=== PATIENT | female | born 1985 | race Caucasian/White ===

== ENCOUNTER 2021-05-20 12:54 | Inpatient (IN) ==
[2021-05-20] MEDS ORDERED: ONDANSETRON 4 MG/2 ML VIAL IV PRN (13:35)
[2021-05-20] MEDS ORDERED: BUTORPHANOL 2 MG/ML VIAL IV PRN (13:35)
[2021-05-20] MEDS ORDERED: LACTATED RINGERS 1,000 ML IV PRN (13:35)
[2021-05-20] MEDS ORDERED: BUTORPHANOL 1 MG/ML VIAL IV PRN (13:35)
[2021-05-20] MEDS ORDERED: AMPICILLIN INJ 2,000 MG in SODIUM CHLORIDE 0.9% 100 ML IV ONE (13:37)
[2021-05-20 14:21] LABS: Basophils % 0.4 % (0.0-0.8); Eosinophils # 0.1 10*3/uL (0.0-0.87); Eosinophils % 0.7 % (0.00-10.9); Hematocrit 38.3 VOL% (35.7-47.0); Hemoglobin 13.4 GM/DL (12.0-16.0); Immature Granulocytes % 0.7 %; Immature Granulocytes Absolute 0.06 #; Lymphocytes # 2.3 10*3/uL (1.4-4.0); Lymphocytes % 24.8 % (21.3-54.2); Mean Corpuscular Volume 89.9 FL (87-102); Mean Platelet Volume 11.1 FL (9.6-12.0); Monocytes % 5.1 % (1.7-12.7); Neutrophils % 68.3 % (38.7-73.9); Platelet Count 172 T/CUMM (130-400); Red Blood Count 4.26 MC/CUMM (3.8-5.5); Red Cell Distribution Width 13.1 % (9.3-17.3); White Blood Count 9.2 T/CUMM (4-12)
[2021-05-20] MEDS ORDERED: OXYTOCIN/LR 20 UNIT/1,000 ML BAG IV ONE ×2 (17:04→21:16)
[2021-05-20] MEDS ORDERED: miSOPROStoL 200 MCG TABLET ONE (17:04)
[2021-05-20] MEDS ORDERED: SODIUM CHLORIDE 0.9% 0 ML IV ONE (17:04)
[2021-05-20] MEDS ORDERED: TRANEXAMIC ACID 1,000 MG/10 ML VIAL ONE (17:04)
[2021-05-20] MEDS ORDERED: METHYLERGONOVINE 0.2 MG/1 ML AMP ONE (17:05)
[2021-05-20] MEDS ORDERED: CARBOPROST TROMETHAMINE 250 MCG/ML AMP IM ONE (17:05)
[2021-05-20] MEDS ORDERED: AMPICILLIN INJ 1,000 MG in SODIUM CHLORIDE 0.9% 100 ML IV SCH (17:30)
[2021-05-20 19:00] LABS: Cord Arterial Blood HCO3 21.7 MMOL/L
[2021-05-20 19:02] LABS: Cord Venous Blood PCO2 32.4 MMHG; Cord Venous Blood PO2 29.8
[2021-05-20] MEDS ORDERED: IBUPROFEN 800 MG TABLET PO ONE (20:38)
[2021-05-20] MEDS ORDERED: oxyCODONE/ACETAMINOPHEN 5-325 MG TABLET PO PRN ×2 (21:27)
[2021-05-20] MEDS ORDERED: IBUPROFEN 800 MG TABLET PO PRN (21:27)
[2021-05-21 06:59] LABS: Basophils % 0.3 % (0.0-0.8); Eosinophils # 0.1 10*3/uL (0.0-0.87); Eosinophils % 0.4 % (0.00-10.9); Hematocrit 33.8 VOL% (35.7-47.0); Hemoglobin 11.4 GM/DL (12.0-16.0); Immature Granulocytes % 0.7 %; Immature Granulocytes Absolute 0.08 #; Lymphocytes # 2.2 10*3/uL (1.4-4.0); Lymphocytes % 19.1 % (21.3-54.2); Mean Corpuscular HGB Conc 33.7 GM/DL (32-36); Mean Corpuscular Volume 93.6 FL (87-102); Mean Platelet Volume 11.8 FL (9.6-12.0); Monocytes % 6.6 % (1.7-12.7); Neutrophils % 72.9 % (38.7-73.9); Platelet Count 158 T/CUMM (130-400); Red Blood Count 3.61 MC/CUMM (3.8-5.5); Red Cell Distribution Width 13.1 % (9.3-17.3); White Blood Count 11.6 T/CUMM (4-12)
[2021-05-21] MEDS: DOCUSATE SODIUM 100 MG CAPSULE PO SCH ×2 (09:04→21:00)
[2021-05-21] MEDS ORDERED: ACETAMINOPHEN 325 MG TABLET PO PRN (09:28)
[2021-05-21] MEDS ORDERED: MEASLES/MUMPS/RUBELLA VACCINE 0.5 ML VIAL SUBCUT ONE (09:28)
[2021-05-21] MEDS ORDERED: BISACODYL 10 MG SUPP RECTAL PRN (09:28)
[2021-05-21] MEDS ORDERED: LANOLIN 50% CREAM 0.3 OZ TUBE TOP PRN (09:28)
[2021-05-21] MEDS ORDERED: BENZOCAINE 20%/MENTHOL 0.5% SPRAY 56 GM CAN TOP PRN (09:28)
[2021-05-21] MEDS ORDERED: HYDROCORTISONE 2.5% RECTAL CREAM 30 GM TUBE TOP PRN (09:28)
[2021-05-21] MEDS ORDERED: WITCH HAZEL PADS 100/JAR TOP PRN (09:28)
[2021-05-21] MEDS ORDERED: DIPH/TET/ACEL PERT BOOSTER VACCINE 0.5 ML VIAL IM ONE (09:28)
[2021-05-21] MEDS ORDERED: RHO(D) IMMUNE GLOBULIN 300 MCG SYRINGE IM ONE (15:00)
[2021-05-22 07:18] VITALS: BP 104/56
[2021-05-22] MEDS: DOCUSATE SODIUM 100 MG CAPSULE PO SCH (09:34)
== END 2021-05-22 10:35 | disposition home or self-care (01) | DRG 807 ==
LOC: N.LD 12:54 → N.OB 21:25
PROVIDERS: ADMIT Obstetrics & Gynecology; ATTEND Obstetrics & Gynecology